=== PATIENT | male | born 1960 | race Caucasian/White ===

== ENCOUNTER → 2017-10-16 | Outpatient (CLI) | payer OTHER ==
[~2017-10-16] MED LIST: MELO15TA10 PO; PRLSR20 PO; ULT/50 PO
--- NOTE | 2017-10-16 12:12 | DIAGNOSTIC IMAGING REPORT ---
MRI LEFT KNEE NO CONTRAST CLINICAL HISTORY: Left knee pain. Possible meniscal tear. COMPARISON STUDY: No previous studies for comparison. FINDINGS: Imaging was performed in the sagittal, axial, and coronal planes. There are no areas of marrow edema to indicate occult fracture or bone bruise. The quadriceps and patellar tendons appear normal. The anterior, and posterior cruciate ligaments appear intact. The medial and lateral collateral ligaments appear intact. No tears a lateral meniscus are visualized. There is a complex horizontal tear involving the posterior horn of the medial meniscus, with a displaced meniscal fragment.. There are small popliteal cyst. IMPRESSION: Complex horizontal tear involving the posterior horn the medial meniscus with a displaced meniscal fragment Electronically signed by: Niko Ordoñez M.D. 10/16/2017 12:10 PM Dictated Date/Time: 10/16/2017 12:07 PM
== END | disposition home or self-care (01) ==
LOC: C.MRI 11:09
PROVIDERS: ATTEND Orthopaedic Surgery
DX: S83.242A Other tear of medial meniscus, current injury, left knee, initial encounter (principal); X58.XXXA Exposure to other specified factors, initial encounter